=== PATIENT | male | born 1985 | race Caucasian/White ===

== ENCOUNTER 2018-10-19 15:55 | Emergency (ER) | payer OTHER ==
[~2018-10-19] VITALS: Ht 188 cm; Wt 97.5 kg
== END 2018-10-19 18:10 | disposition home or self-care (01) ==
LOC: ER 15:55
DX: S80.871A Other superficial bite, right lower leg, initial encounter (principal); L08.9 Local infection of the skin and subcutaneous tissue, unspecified; W57.XXXA Bitten or stung by nonvenomous insect and other nonvenomous arthropods, initial encounter; Y93.89 Activity, other specified; Y92.89 Other specified places as the place of occurrence of the external cause; Y99.8 Other external cause status; M54.5 Low back pain